=== PATIENT | male | born 1995 | race Caucasian/White ===

== ENCOUNTER 2017-05-02 15:01 | Emergency (ER) | payer BC | END 2017-05-02 15:17 | disposition other institution (70) | LOC: LB.ED 15:01 | DX: Z13.9 Encounter for screening, unspecified (principal) ==

== ENCOUNTER 2017-09-22 22:50 | Emergency (ER) | payer BC ==
--- NOTE | 2017-09-23 01:46 | ER ---
HISTORY OF PRESENT ILLNESS: A 22-year-old male who comes in with his mother. The patient attempted suicide this evening. He tells me that he was very angry about things and decided to go up to the railroad tracks and he laid on the railroad track. The train did come and went past him on a different set of tracts. There was dual tracks where he was. The patient tells me that he has never attempted suicide before, but he has had a lot of thoughts of suicide over the last couple of years as well as problems with depression. He has also history of bipolar and ADHD. He is currently taking Seroquel 100 mg a day. The patient states he does use marijuana at times to help with his depression. He tells me that his past stress factors have been being in nursing home one year ago for a while. He also lost a job back in 2016, but he is currently working a new job that he got one month ago. The patient tells me that another stress factor was a girlfriend that left him in 2016. He tells me that he usually sleeps a lot. He is currently staying with his sister who has three small children in the home and that bothers him somewhat, the noise from the kids. The patient denies any alcohol use today. OBJECTIVE: GENERAL APPEARANCE: The patient is awake and alert. He makes good eye contact. He is quite talkative with his answers. VITAL SIGNS: Reviewed. Blood pressure 127/82. He is afebrile. Respirations 16. Pulse is 57. HEENT: Ears; TMs are normal. Nares are patent. Oral mucous membranes are moist. Tonsils not enlarged or injected. Pharynx not inflamed. NECK: Supple. LUNGS: Clear. CARDIAC: Heart sounds distinct without murmurs. SKIN: Warm and dry. DIAGNOSIS: Suicide attempt. TREATMENT PLAN: [facility] was contacted and the Mental Health Department had a consult with the patient and that provider agrees that the patient had serious intent of harming himself tonight and highly recommends inpatient treatment. Attempt will be made to find placement as close as possible. LABORATORY DATA: Lab work done today include a CBC, CMP, TSH, and drug screen. The only abnormal lab result is TSH is positive. CRS/MODL /[id number]
== END 2017-09-23 03:30 ==
LOC: EEVIPCON 22:50 → LB.ED 22:50
DX: T14.91XA Suicide attempt, initial encounter (principal); I10 Essential (primary) hypertension; F31.9 Bipolar disorder, unspecified; F90.8 Attention-deficit hyperactivity disorder, other type; Z79.899 Other long term (current) drug therapy
CPT/HCPCS: 36415; 80053; 80307; 84443; 85025; 99285; A0425; A0429; G0480

== ENCOUNTER 2020-03-17 23:04 | Emergency (ER) | payer BC, MEDICAID ==
[2020-03-17] MEDS ORDERED: Sodium Chloride 0.9% 10 ML Syringe FLUSH PRN (23:23)
--- NOTE | 2020-03-17 23:42 | EDM.PDOC ---
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 Woked last night slept until 6 pm . Started with nausea while reading in bed . Nausea woprsened and patient had sensation of room spinning. Vomited several times than went to take a shower and is unsure if he passed out or fell asleep. Still with nausea and episodes of feeling unsteady similar to sensation of twirling in circles and then stopping quickly. 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 Denies: Ear Discharge, Ear Pain, Hearing Loss, Sinus Problem Respiratory: Denies: Shortness of Breath, Wheezing, Cough, Sputum Cardiovascular: Denies: Chest Pain, Blood Pressure Problem GI/Abdominal: Reports: Nausea, Vomiting. Denies: Abdominal Pain, Anorexia, Diarrhea : Reports: No Symptoms Musculoskeletal: Denies: Neck Pain, Arm Pain Skin: Denies: Cyanosis, Jaundice, Diaphoresis ED EXAM, GENERAL - Physical Exam Exam: See Below Exam Limited By: No Limitations General Appearance: Alert, WD/WN, No Apparent Distress Eye Exam: Bilateral Eye: Abnormal EOM (not present), Normal Fundi, Normal I nspection, Nystagmus (Minimal horizontal nystagmsuj) Ears: Normal External Exam, Normal Canal, Hearing Grossly Normal, Normal TMs Nose: Normal Inspection, Normal Mucosa, No Blood Throat/Mouth: Normal Inspection, Normal Lips, Normal Teeth, Normal Gums Head: Atraumatic, Normocephalic Neck: Normal Inspection, Supple, Non-Tender, Full Range of Motion Respiratory/Chest: No Respiratory Distress, Lungs Clear, Normal Breath Sounds Cardiovascular: Regular Rate, Rhythm, No Murmur GI/Abdominal: Soft, Non-Tender Back Exam: Normal Inspection, Full Range of Motion Extremities: Normal Inspection, Normal Range of Motion Neurological: Alert, Oriented, Normal Cognition, Normal Gait, Other (Positive symptoms with NYlan -Barany Maneuver) Course - Vital Signs Text/Narrative:: Criminal Investigator with Normal Sinus Rhythm Patient treated with 1 liter of normal saline Orthostatic vital signs obtained and reviewed and were WNL Lawrence maneuver teaching /demonstration and instructions given Antivert 25 mg po tid prn prescribed Last Recorded V/S: Last Vital Signs Temp 97.6 F 03/17/20 23:07 Pulse 77 03/17/20 23:07 Resp 16 03/17/20 23:07 BP 135/77 03/17/20 23:07 Pulse Ox 98 03/17/20 23:07 Orthostatic Blood Pressure [ 135/90 Standing] Orthostatic Blood Pressure [ 134/79 Sitting] Orthostatic Blood Pressure [ 127/72 Supine] - Orders/Labs/Meds Labs: Laboratory Tests 03/17/20 03/17/20 Range/Units 23:30 23:30 WBC 11.3 H (4.0-11.0) K/uL RBC 5.08 (4.50-6.50) M/uL Hgb 16.6 (13.0-18.0) g/dL Hct 46.5 (40.0-54.0) % MCV 92 (76-96) fL MCH 32.7 H (27.0-32.0) pg MCHC 35.7 H (31.0-35.0) g/dL RDW 12.3 (11.0-16.0) % Plt Count 227 (150-400) K/uL MPV 9.7 (6.0-10.0) fL Neut % (Auto) 83.8 H (45.0-70.0) % Lymph % (Auto) 11.5 L (20.0-40.0) % Emmons % (Auto) 4.4 (3.0-10.0) % Eos % (Auto) 0.1 L (1.0-5.0) % Baso % (Auto) 0.2 (0.0-0.5) % Neut # (Auto) 9.43 H (2.00-7.50) K/uL Lymph # (Auto) 1.29 L (1.50-4.00) K/uL Emmons # (Auto) 0.50 (0.20-0.80) K/uL Eos # (Auto) 0.01 L (0.04-0.40) K/uL Baso # (Auto) 0.02 (0.02-0.10) K/uL Sodium 142 (136-145) mmol/L Potassium 3.5 (3.5-5.1) mmol/L Chloride 105 (98-107) mmol/L Carbon Dioxide 29.1 (21.0-32.0) mmol/L Anion Gap 11.4 (5.0-15.0) mmol/L BUN 12 (8-26) mg/dL Creatinine 1.02 (0.70-1.30) mg/dL Est Cr Clr Drug Dosing TNP Estimated GFR (MDRD) > 60 (>60) MLS/MIN BUN/Creatinine Ratio 11.8 (6-25) Glucose 102 H (74-100) mg/dL Calcium 9.4 (8.5-10.1) mg/dL Total Bilirubin 0.6 (0.0-1.0) mg/dL AST 14 L (15-37) U/L ALT 22 (12-78) U/L Alkaline Phosphatase 71 (46-116) U/L Total Protein 7.7 (6.4-8.2) g/dL Albumin 4.8 (3.4-5.0) g/dL Globulin 2.9 (2.2-4.2) g/dL Albumin/Globulin Ratio 1.7 (0.8-2.0) Meds: Medications Discontinued Medications Generic Name Dose Route Start Last Admin Trade Name Freq PRN Reason Stop Dose Admin Sodium Chloride 1,000 mls @ 999 mls/hr 03/17/20 23:30 03/18/20 00:45 Normal Saline IV Infused ASDIRECTED MALDONADO Infusion Meclizine HCl 25 mg 03/17/20 23:31 03/17/20 23:58 Antivert PO 03/17/20 23:32 25 mg ONETIME ONE Administration Ondansetron HCl 4 mg 03/17/20 23:27 03/17/20 23:59 Zofran IVPUSH 03/17/20 23:28 4 mg ONETIME ONE Administration Sodium Chloride 10 ml 03/17/20 23:23 Saline Flush FLUSH ASDIRECTED PRN Keep Vein Open Departure - Departure Time of Disposition: 00:35 Disposition: Home, Self-Care 01 Condition: Fair Clinical Impression: Peripheral positional vertigo Qualifiers: Laterality: unspecified laterality Qualified Code(s): H81.399 - Other peripheral vertigo, unspecified ear - Discharge Information *PRESCRIPTION DRUG MONITORING PROGRAM REVIEWED*: Not Applicable Instructions: Vertigo, [id number], How to Perform the Lawrence Maneuver, Benign Positional Vertigo Referrals: PCP,None [Primary Care Provider] - Forms: ED Department Discharge, ED Return to Work/School Form Additional Instructions: Take Meclizine 25 mg 1 tablet 3x/day as needed for dizziness./vertigo/nausea Lawrence maneuvers as per instructions until symptoms clear Drink plenty of fluids Follow up with clinic in next few days if symptoms do not clear Return to ED for worsening of symptoms.
[2020-03-17] MEDS: Meclizine 12.5 MG Tab PO ONE (23:58)
[2020-03-17] MEDS: Ondansetron 4 MG/2 ML SDV IVPUSH ONE (23:59)
[2020-03-18] MEDS: Sodium Chloride 0.9% 1,000 ML IV SCH (00:10)
== END 2020-03-18 00:55 | disposition home or self-care (01) ==
LOC: LB.ED 23:04
DX: H81.399 Other peripheral vertigo, unspecified ear (principal); F31.9 Bipolar disorder, unspecified; R42 Dizziness and giddiness; Z79.899 Other long term (current) drug therapy
CPT/HCPCS: 36415; 80053; 85025; 96361; 96374; 99284-25; A9270-GY; J2405; J7030

== ENCOUNTER 2022-06-21 17:30 | Emergency (ER) | payer MEDICAID ==
[2022-06-21] MEDS ORDERED: Ondansetron 4 MG Tab.DIS ONE (18:15)
== END 2022-06-21 18:30 | disposition home or self-care (01) ==
LOC: LB.ED 17:30
DX: R11.2 Nausea with vomiting, unspecified (principal); K12.0 Recurrent oral aphthae; R05.9 Cough, unspecified; Z88.1 Allergy status to other antibiotic agents; Z20.822 Contact with and (suspected) exposure to COVID-19
CPT/HCPCS: 87635; 99284; Q0162; U0002